=== PATIENT | male | born 1965 | race Caucasian/White ===

== ENCOUNTER 2016-08-26 23:54 | Emergency (ER) | payer MEDICAID ==
[~2016-08-26] VITALS: Ht 170.2 cm; Wt 83.7 kg
[2016-08-26 23:56] VITALS: BP 143/99
[2016-08-27] MEDS ORDERED: IBUPROFEN 200 MG TABLET ONE (00:11)
[2016-08-27] MEDS ORDERED: IBUPROFEN 200 MG TABLET PO ONE (00:30)
== END 2016-08-27 00:51 | disposition home or self-care (01) ==
LOC: ED 23:59
DX: M77.9 Enthesopathy, unspecified (principal)
CPT/HCPCS: 29125